=== PATIENT | male | born 1980 | race African-American/Black ===

== ENCOUNTER 2017-05-04 14:29 | Inpatient (IN) | payer MEDICARE, MEDICAID ==
[~2017-05-04] VITALS: Ht 170.2 cm; Wt 73.0 kg
[~2017-05-04 14:29] MED LIST: GABA-531 PO; HYDR-4009 PO; INSHUMSS SUBCUT; INSU300I SQ; LOPE2TAB26 MT
[2017-05-04] MEDS ORDERED: CEFEPIME 1,000 MG in DEXTROSE 5% WATER 50 ML IV SCH (20:30)
[2017-05-04 21:56] LABS: HEMOGLOBIN. 8.4 g/dL (14.0-18.0); MEAN CORPUSCULAR HEMOGLOBIN 26.8 pg (28.0-32.0); MEAN CORPUSCULAR VOLUME 85.7 fL (80.0-94.0); MEAN PLATELET VOLUME 7.4 fl (7.4-10.4); PLATELET 419 x1000/uL (130-400); RED BLOOD CELL COUNT 3.15 mill/uL (4.7-6.1); RED CELL DISTRIBUTION WIDTH 13.9 % (11.6-14.6)
[2017-05-04 22:05] LABS: INR 1.1; PROTHROMBIN TIME 11.6 sec (9.4-11.6)
[2017-05-04 22:08] LABS: CHLORIDE 100 mEq/L (98-107)
[2017-05-04 22:15] LABS: PLATELET ESTIMATE SLIGHTLY INCREASED
[2017-05-05] VITALS (29 sets, daily range): BP systolic 126–166; BP diastolic 74–90
[2017-05-05] MEDS ORDERED: DEXTROSE 50% WATER 50ML SYRINGE IV PRN ×3 (01:45→08:30)
[2017-05-05] MEDS ORDERED: INSULIN LISPRO 100 UNITS/ML SUBCUT NR (02:15)
[2017-05-05 03:14] LABS: CHLORIDE 98 mEq/L (98-107)
[2017-05-05] MEDS ORDERED: BLOOD SUGAR DIAGNOSTIC STRIP TEST SCH (07:20)
[2017-05-05] MEDS ORDERED: INSULIN LISPRO 100 UNITS/ML SUBCUT SCH (07:50)
[2017-05-05] MEDS: BLOOD SUGAR DIAGNOSTIC STRIP TEST SCH ×15 (09:00→23:00)
[2017-05-05] MEDS ORDERED: ENOXAPARIN 40MG/0.4ML SYR SUBCUT SCH (09:00)
[2017-05-05] MEDS ORDERED: SODIUM CHLORIDE 0.9% 1,000 ML IV PRN (09:00)
[2017-05-05] MEDS: INSULIN REGULAR (DRIP) 100 UNITS in SODIUM CHLORIDE 0.9% 100 ML IV SCH ×2 (09:03→20:31)
[2017-05-05] MEDS ORDERED: SODIUM CHL 0.9% + KCL 20MEQ/L 1,000 ML IV PRN (09:15)
[2017-05-05] MEDS ORDERED: DEXT 5%/0.9% NACL 1,000 ML IV PRN (09:15)
[2017-05-05] MEDS: GABAPENTIN 300MG CAPSULE PO SCH ×3 (10:14→17:55)
[2017-05-05] MEDS ORDERED: HYDRALAZINE 20MG/ML VIAL IV PRN (10:15)
[2017-05-05 10:30] LABS: HEMATOCRIT. 25.3 % (42.0-52.0); HEMOGLOBIN. 8.1 g/dL (14.0-18.0); MEAN CORPUSCULAR HEMOGLOBIN 26.7 pg (28.0-32.0); MEAN CORPUSCULAR VOLUME 83.6 fL (80.0-94.0); MEAN PLATELET VOLUME 6.8 fl (7.4-10.4); PLATELET 470 x1000/uL (130-400); RED BLOOD CELL COUNT 3.03 mill/uL (4.7-6.1); RED CELL DISTRIBUTION WIDTH 13.6 % (11.6-14.6)
[2017-05-05 10:45] LABS: PLATELET ESTIMATE INCREASED
[2017-05-05 12:48] LABS: PHOSPHORUS 4.8 mg/dL (2.5-4.9)
[2017-05-05] MEDS: DEXT 5%/0.9% NACL KCL 20MEQ/L 1,000 ML IV PRN ×2 (14:12→20:00)
[2017-05-05 15:00] LABS: HDL CHOLESTEROL 33 mg/dL (40-59); LDL CHOLESTEROL 80 mg/dL (5-100)
[2017-05-05 15:09] LABS: CLARITY URINE CLEAR (CLEAR); COLOR URINE YELLOW (YELLOW); KETONES URINE 3+ (NEGATIVE); LEUKOCYTE ESTERASE URINE NEGATIVE (NEGATIVE); NITRITE URINE NEGATIVE (NEGATIVE); OCCULT BLOOD URINE 1+ (NEGATIVE); PROTEIN URINE 3+ (NEGATIVE); SPECIFIC GRAVITY URINE 1.022 (1.005-1.030); UROBILINOGEN URINE 0.2 E.U./dL (0.2-1.0)
[2017-05-05 15:27] LABS: *AMPHETAMINES SCREEN URINE NEGATIVE (NEGATIVE); *BARBITURATES SCREEN URINE NEGATIVE (NEGATIVE); *BENZODIAZEPINES SCREEN URINE NEGATIVE (NEGATIVE); *COCAINE SCREEN URINE NEGATIVE (NEGATIVE); CANNABINOID URINE SCREEN NEGATIVE (NEGATIVE); METHADONE URINE SCREEN NEGATIVE (NEGATIVE); OPIATES URINE SCREEN NEGATIVE (NEGATIVE); PHENCYCLIDINE URINE SCREEN NEGATIVE (NEGATIVE)
[2017-05-05] MEDS ORDERED: VANCOMYCIN 1 G PREMIX 200 ML IV NR (16:30)
[2017-05-05] MEDS: AZTREONAM 2 GM in DEXT 5% WATER 100 ML IV SCH (17:55)
[2017-05-05] MEDS: METRONIDAZOLE 500 MG PREMIX 100 ML IV SCH (18:59)
[2017-05-05] MEDS ORDERED: CEFEPIME 2,000 MG in DEXT 5% WATER 100 ML IV SCH (23:00)
[2017-05-06] VITALS (39 sets, daily range): BP systolic 120–196; BP diastolic 65–108
[2017-05-06] MEDS: METRONIDAZOLE 500 MG PREMIX 100 ML IV SCH ×3 (00:34→18:26)
[2017-05-06] MEDS ORDERED: INSULIN GLARGINE UD 100 UNITS/ML SYR SUBCUT NR (01:00)
[2017-05-06] MEDS ORDERED: DEXT 5%/0.45% NACL 1000ML 1,000 ML IV SCH (01:00)
[2017-05-06] MEDS: AZTREONAM 2 GM in DEXT 5% WATER 100 ML IV SCH ×2 (04:12→17:00)
[2017-05-06] MEDS: BLOOD SUGAR DIAGNOSTIC STRIP TEST SCH ×5 (04:40→19:52)
[2017-05-06] MEDS: INSULIN LISPRO 100 UNITS/ML SUBCUT SCH ×5 (04:41→20:14)
[2017-05-06] MEDS ORDERED: BLOOD SUGAR DIAGNOSTIC STRIP TEST SCH (06:30)
[2017-05-06] MEDS ORDERED: INSULIN LISPRO 100 UNITS/ML SUBCUT SCH (07:00)
[2017-05-06] MEDS ORDERED: ENOXAPARIN 30MG/0.3ML SYR SUBCUT SCH (09:00)
[2017-05-06 09:16] LABS: HEMATOCRIT. 21.3 % (42.0-52.0); HEMOGLOBIN. 7.1 g/dL (14.0-18.0); MEAN CORPUSCULAR HEMOGLOBIN 27.8 pg (28.0-32.0); MEAN CORPUSCULAR VOLUME 83.5 fL (80.0-94.0); MEAN PLATELET VOLUME 6.6 fl (7.4-10.4); PLATELET 444 x1000/uL (130-400); RED BLOOD CELL COUNT 2.55 mill/uL (4.7-6.1); RED CELL DISTRIBUTION WIDTH 13.6 % (11.6-14.6)
[2017-05-06] MEDS: CITRIC ACID/SODIUM CITRATE SOLN 30ML UDC PO SCH ×3 (09:17→18:25)
[2017-05-06] MEDS: GABAPENTIN 300MG CAPSULE PO SCH ×3 (09:17→18:25)
[2017-05-06] MEDS: SODIUM CHLORIDE 0.9% 1,000 ML IV SCH ×3 (09:26→22:19)
[2017-05-06 09:53] LABS: PLATELET ESTIMATE INCREASED
[2017-05-06] MEDS: INSULIN GLARGINE UD 100 UNITS/ML SYR SUBCUT SCH ×2 (12:00→22:20)
[2017-05-06] MEDS ORDERED: GENTAMICIN SULF 40MG/ML 2ML VIAL ONE (14:03)
[2017-05-06] MEDS ORDERED: BUPIVACAINE HCL/PF 0.5% (5MG/ML) 10ML ONE (14:03)
[2017-05-06] MEDS ORDERED: NORMAL SALINE 0.9% 10 ML SYR ONE (14:03)
[2017-05-06] MEDS ORDERED: LIDOCAINE HCL 1% 20ML VIAL (Pyxis) INJ ONE (14:03)
[2017-05-06] MEDS ORDERED: BACITRACIN 50,000 UNITS/VIAL ONE (14:33)
[2017-05-06] MEDS ORDERED: MIDAZOLAM HCL 2 MG/2 ML VIAL ONE (16:12)
[2017-05-06] MEDS ORDERED: DIPHENHYDRAMINE 50MG/ML VIAL ONE (16:12)
[2017-05-06] MEDS ORDERED: FENTANYL CITRATE/PF 50MCG/ML 2ML VIAL ONE (16:12)
[2017-05-06] MEDS ORDERED: SODIUM CHLORIDE 0.9% 10ML VIAL ONE (18:09)
[2017-05-06] MEDS: HYDROCODONE/ACETAMINOPHEN 10/325MG TABLET PO PRN (18:39)
[2017-05-06] MEDS ORDERED: CLONIDINE 0.1MG TABLET PO PRN (19:30)
[2017-05-06] MEDS ORDERED: ACETAMINOPHEN 325MG TABLET PO PRN (20:15)
[2017-05-06] MEDS ORDERED: EPOETIN ALFA 10000UNITS/ML VIAL SUBCUT NR (21:00)
[2017-05-06] MEDS ORDERED: VANCOMYCIN 1 G PREMIX 200 ML IV NR (23:00)
[2017-05-07] VITALS: BP_SYST 107; BP_SYST 109; BP_DIAS 65; BP_DIAS 67
[2017-05-07] MEDS ORDERED: MORPHINE SULFATE 2 MG/ML CPJ (NOT FOR IM USE) IV PRN (00:45)
[2017-05-07] MEDS: METRONIDAZOLE 500 MG PREMIX 100 ML IV SCH ×3 (02:32→18:26)
[2017-05-07] MEDS: HYDROCODONE/ACETAMINOPHEN 10/325MG TABLET PO PRN (02:32)
[2017-05-07 04:00] VITALS: BP 124/79
[2017-05-07] MEDS: BLOOD SUGAR DIAGNOSTIC STRIP TEST SCH ×6 (04:00→20:00)
[2017-05-07] MEDS: AZTREONAM 2 GM in DEXT 5% WATER 100 ML IV SCH ×2 (05:50→19:38)
[2017-05-07 06:42] LABS: HEMATOCRIT. 23.5 % (42.0-52.0); HEMOGLOBIN. 7.5 g/dL (14.0-18.0); MEAN CORPUSCULAR HEMOGLOBIN 26.8 pg (28.0-32.0); MEAN CORPUSCULAR VOLUME 83.2 fL (80.0-94.0); MEAN PLATELET VOLUME 6.7 fl (7.4-10.4); PLATELET 430 x1000/uL (130-400); RED BLOOD CELL COUNT 2.82 mill/uL (4.7-6.1); RED CELL DISTRIBUTION WIDTH 14.5 % (11.6-14.6)
[2017-05-07 07:27] LABS: T4 FREE 1.45 ng/dL (0.76-1.46)
[2017-05-07 07:41] LABS: PLATELET ESTIMATE SLIGHTLY INCREASED
[2017-05-07 08:00] VITALS: BP 117/67
[2017-05-07] MEDS: CITRIC ACID/SODIUM CITRATE SOLN 30ML UDC PO SCH ×3 (09:00→18:26)
[2017-05-07] MEDS: GABAPENTIN 300MG CAPSULE PO SCH ×3 (09:04→18:26)
[2017-05-07] MEDS: ENOXAPARIN 40MG/0.4ML SYR SUBCUT SCH (09:05)
[2017-05-07] MEDS: INSULIN LISPRO 100 UNITS/ML SUBCUT SCH ×5 (09:18→21:39)
[2017-05-07 12:00] VITALS: BP 138/78
[2017-05-07] MEDS: AMLODIPINE 5MG TABLET PO SCH (12:05)
[2017-05-07] MEDS: INSULIN GLARGINE UD 100 UNITS/ML SYR SUBCUT SCH ×2 (12:16→22:00)
[2017-05-07] MEDS: SODIUM CHLORIDE 0.9% 1,000 ML IV SCH ×2 (15:44→15:45)
[2017-05-07 16:00] VITALS: BP 132/81
[2017-05-07] MEDS ORDERED: VANCOMYCIN 1 G PREMIX 200 ML IV NR (16:00)
[2017-05-07] MEDS: [UNRECOGNIZED DRUG - OTHER] IR SCH ×4 (17:00)
[2017-05-07] MEDS: POLYMYXIN B SULFATE IR SCH ×4 (17:00)
[2017-05-07] MEDS: BACITRACIN IR SCH ×4 (17:00)
[2017-05-07 20:00] VITALS: BP 143/80
[2017-05-07] MEDS: METOPROLOL TARTRATE 50MG TABLET PO SCH (21:40)
[2017-05-08] VITALS (9 sets, daily range): BP systolic 110–158; BP diastolic 58–85
[2017-05-08] MEDS: BLOOD SUGAR DIAGNOSTIC STRIP TEST SCH ×6 (00:02→21:04)
[2017-05-08] MEDS: BACITRACIN IR SCH ×12 (00:04→21:28)
[2017-05-08] MEDS: POLYMYXIN B SULFATE IR SCH ×12 (00:04→21:28)
[2017-05-08] MEDS: [UNRECOGNIZED DRUG - OTHER] IR SCH ×12 (00:04→21:28)
[2017-05-08] MEDS: METRONIDAZOLE 500 MG PREMIX 100 ML IV SCH ×3 (01:45→20:57)
[2017-05-08] MEDS: INSULIN LISPRO 100 UNITS/ML SUBCUT SCH ×6 (04:00→21:27)
[2017-05-08] MEDS: AZTREONAM 2 GM in DEXT 5% WATER 100 ML IV SCH (04:09)
[2017-05-08] MEDS: SODIUM CHLORIDE 0.9% 1,000 ML IV SCH ×2 (04:09→16:08)
[2017-05-08 06:50] LABS: MEAN CORPUSCULAR HEMOGLOBIN 27.4 pg (28.0-32.0); MEAN CORPUSCULAR VOLUME 82.9 fL (80.0-94.0); MEAN PLATELET VOLUME 6.6 fl (7.4-10.4); PLATELET 399 x1000/uL (130-400); RED BLOOD CELL COUNT 2.48 mill/uL (4.7-6.1); RED CELL DISTRIBUTION WIDTH 14.4 % (11.6-14.6)
[2017-05-08 07:18] LABS: HEMOGLOBIN. 6.8 g/dL (14.0-18.0)
[2017-05-08 07:19] LABS: HEMATOCRIT. 20.5 % (42.0-52.0)
[2017-05-08 07:51] LABS: PHOSPHORUS 2.6 mg/dL (2.5-4.9)
[2017-05-08] MEDS: METOPROLOL TARTRATE 50MG TABLET PO SCH ×3 (09:00→21:11)
[2017-05-08] MEDS: AMLODIPINE 5MG TABLET PO SCH ×2 (09:00→13:18)
[2017-05-08] MEDS: ENOXAPARIN 40MG/0.4ML SYR SUBCUT SCH (10:22)
[2017-05-08] MEDS: GABAPENTIN 300MG CAPSULE PO SCH ×3 (10:23→17:34)
[2017-05-08] MEDS: CITRIC ACID/SODIUM CITRATE SOLN 30ML UDC PO SCH ×3 (10:25→17:34)
[2017-05-08] MEDS: INSULIN GLARGINE UD 100 UNITS/ML SYR SUBCUT SCH ×2 (10:25→21:16)
[2017-05-08] MEDS ORDERED: POTASSIUM CHLORIDE 20MEQ TABLET SR PO NR (10:37)
[2017-05-08] MEDS ORDERED: MAGNESIUM 1 G PREMIX 100 ML IV NR (11:00)
[2017-05-08] MEDS ORDERED: LEVOFLOXACIN 750MG PREMIX 150 ML IV SCH (17:00)
[2017-05-08] MEDS: VANCOMYCIN 1 G PREMIX 200 ML IV SCH (17:34)
[2017-05-08 19:53] LABS: INR 1.3; PROTHROMBIN TIME 13.2 sec (9.4-11.6)
[2017-05-08] MEDS ORDERED: MEDICATION NOT ON FORMULARY EA XX SCH (21:00)
[2017-05-08 21:11] LABS: PLATELET ESTIMATE NORMAL
[2017-05-08] MEDS: LEVOFLOXACIN 750MG PREMIX 150 ML IV SCH (22:06)
[2017-05-09] VITALS (7 sets, daily range): BP systolic 118–152; BP diastolic 58–82
[2017-05-09] MEDS: METRONIDAZOLE 500 MG PREMIX 100 ML IV SCH ×3 (01:29→17:26)
[2017-05-09] MEDS: SODIUM CHLORIDE 0.9% 1,000 ML IV SCH ×3 (01:29→18:38)
[2017-05-09] MEDS: BLOOD SUGAR DIAGNOSTIC STRIP TEST SCH ×7 (04:08→23:47)
[2017-05-09] MEDS: INSULIN LISPRO 100 UNITS/ML SUBCUT SCH ×7 (04:14→23:47)
[2017-05-09 06:40] LABS: HEMATOCRIT. 23.2 % (42.0-52.0); HEMOGLOBIN. 7.5 g/dL (14.0-18.0); MEAN CORPUSCULAR HEMOGLOBIN 27.7 pg (28.0-32.0); MEAN CORPUSCULAR VOLUME 85.4 fL (80.0-94.0); MEAN PLATELET VOLUME 7.1 fl (7.4-10.4); PLATELET 372 x1000/uL (130-400); RED BLOOD CELL COUNT 2.72 mill/uL (4.7-6.1); RED CELL DISTRIBUTION WIDTH 14.4 % (11.6-14.6)
[2017-05-09] MEDS: ENOXAPARIN 40MG/0.4ML SYR SUBCUT SCH (09:48)
[2017-05-09] MEDS: CITRIC ACID/SODIUM CITRATE SOLN 30ML UDC PO SCH ×3 (09:48→17:25)
[2017-05-09] MEDS: METOPROLOL TARTRATE 50MG TABLET PO SCH ×2 (09:51→20:29)
[2017-05-09] MEDS: AMLODIPINE 5MG TABLET PO SCH (09:51)
[2017-05-09] MEDS: GABAPENTIN 300MG CAPSULE PO SCH ×3 (09:52→17:26)
[2017-05-09] MEDS: INSULIN GLARGINE UD 100 UNITS/ML SYR SUBCUT SCH ×2 (09:55→20:33)
[2017-05-09] MEDS: HYDROCODONE/ACETAMINOPHEN 10/325MG TABLET PO PRN ×2 (09:56→20:45)
[2017-05-09] MEDS: BACITRACIN IR SCH ×8 (11:04→20:28)
[2017-05-09] MEDS: [UNRECOGNIZED DRUG - OTHER] IR SCH ×8 (11:04→20:28)
[2017-05-09] MEDS: POLYMYXIN B SULFATE IR SCH ×8 (11:04→20:28)
[2017-05-09 14:30] LABS: PLATELET ESTIMATE NORMAL
[2017-05-09] MEDS ORDERED: POTASSIUM CHLORIDE 20MEQ TABLET SR PO SCH (14:30)
[2017-05-09] MEDS: VANCOMYCIN 1 G PREMIX 200 ML IV SCH (14:52)
[2017-05-09] MEDS: LACTOBACILLUS GG CAPSULE PO SCH (17:25)
[2017-05-10] VITALS: BP 130/79
[2017-05-10] MEDS: METRONIDAZOLE 500 MG PREMIX 100 ML IV SCH ×3 (01:53→19:55)
[2017-05-10] MEDS: SODIUM CHLORIDE 0.9% 1,000 ML IV SCH (03:53)
[2017-05-10] MEDS: INSULIN LISPRO 100 UNITS/ML SUBCUT SCH ×6 (03:58→23:54)
[2017-05-10] MEDS: BLOOD SUGAR DIAGNOSTIC STRIP TEST SCH ×6 (03:58→23:54)
[2017-05-10 04:00] VITALS: BP 121/73
[2017-05-10 06:25] LABS: BASOPHILS % 0.2 % (0.0-2.0); EOSINOPHILS % 1.9 % (0.0-5.0); HEMATOCRIT. 28.6 % (42.0-52.0); HEMOGLOBIN. 9.3 g/dL (14.0-18.0); LYMPHOCYTES % 10.7 % (20.0-50.0); MEAN CORPUSCULAR HEMOGLOBIN 27.8 pg (28.0-32.0); MEAN CORPUSCULAR VOLUME 85.8 fL (80.0-94.0); MEAN PLATELET VOLUME 6.9 fl (7.4-10.4); MONOCYTES % 5.8 % (2.0-8.0); NEUTROPHILS % 81.4 % (40.0-76.0); PLATELET 556 x1000/uL (130-400); RED BLOOD CELL COUNT 3.34 mill/uL (4.7-6.1); RED CELL DISTRIBUTION WIDTH 14.8 % (11.6-14.6)
[2017-05-10] MEDS: LACTOBACILLUS GG CAPSULE PO SCH ×3 (06:31→17:37)
[2017-05-10 06:40] LABS: PHOSPHORUS 2.4 mg/dL (2.5-4.9)
[2017-05-10 08:00] VITALS: BP 140/83
[2017-05-10] MEDS: CITRIC ACID/SODIUM CITRATE SOLN 30ML UDC PO SCH ×2 (09:03→17:37)
[2017-05-10] MEDS: ENOXAPARIN 40MG/0.4ML SYR SUBCUT SCH (09:03)
[2017-05-10] MEDS: METOPROLOL TARTRATE 50MG TABLET PO SCH ×2 (09:03→21:13)
[2017-05-10] MEDS: AMLODIPINE 5MG TABLET PO SCH (09:04)
[2017-05-10] MEDS: GABAPENTIN 300MG CAPSULE PO SCH ×3 (09:04→17:37)
[2017-05-10] MEDS: INSULIN GLARGINE UD 100 UNITS/ML SYR SUBCUT SCH ×2 (11:34→21:19)
[2017-05-10 12:00] VITALS: BP 136/80
[2017-05-10] MEDS: MAGNESIUM OXIDE 400MG TABLET PO SCH ×2 (13:34→21:12)
[2017-05-10] MEDS: POTASSIUM-SODIUM PHOSPHATE POWDER PACKET PO SCH ×2 (13:35→17:37)
[2017-05-10] MEDS ORDERED: POTASSIUM PHOS,M-BASIC-D-BASIC 15 MMOL in DEXT 5% WATER 245 ML IV SCH (14:30)
[2017-05-10] MEDS: BACITRACIN IR SCH ×8 (14:45→20:33)
[2017-05-10] MEDS: [UNRECOGNIZED DRUG - OTHER] IR SCH ×8 (14:45→20:33)
[2017-05-10] MEDS: POLYMYXIN B SULFATE IR SCH ×8 (14:45→20:33)
[2017-05-10 16:00] VITALS: BP 127/78
[2017-05-10] MEDS: VANCOMYCIN 1 G PREMIX 200 ML IV SCH (18:11)
[2017-05-10] MEDS ORDERED: HEPARIN 100 UNITS/1 ML VIAL IVF PRN (18:45)
[2017-05-10 20:00] VITALS: BP 142/85
[2017-05-10] MEDS: LEVOFLOXACIN 750MG PREMIX 150 ML IV SCH (21:18)
[2017-05-11] VITALS: BP 134/78
[2017-05-11] MEDS: METRONIDAZOLE 500 MG PREMIX 100 ML IV SCH ×3 (01:09→17:28)
[2017-05-11 04:00] VITALS: BP 119/75
[2017-05-11] MEDS: INSULIN LISPRO 100 UNITS/ML SUBCUT SCH ×5 (04:00→20:35)
[2017-05-11] MEDS: BLOOD SUGAR DIAGNOSTIC STRIP TEST SCH ×5 (04:04→20:02)
[2017-05-11] MEDS: LACTOBACILLUS GG CAPSULE PO SCH ×3 (05:58→17:28)
[2017-05-11 07:12] LABS: BASOPHILS % 0.3 % (0.0-2.0); EOSINOPHILS % 1.3 % (0.0-5.0); HEMOGLOBIN. 9.1 g/dL (14.0-18.0); LYMPHOCYTES % 9.3 % (20.0-50.0); MEAN CORPUSCULAR HEMOGLOBIN 27.4 pg (28.0-32.0); MEAN CORPUSCULAR VOLUME 84.5 fL (80.0-94.0); MEAN PLATELET VOLUME 6.5 fl (7.4-10.4); MONOCYTES % 5.9 % (2.0-8.0); NEUTROPHILS % 83.2 % (40.0-76.0); PLATELET 592 x1000/uL (130-400); RED BLOOD CELL COUNT 3.31 mill/uL (4.7-6.1); RED CELL DISTRIBUTION WIDTH 14.7 % (11.6-14.6)
[2017-05-11 08:00] VITALS: BP_SYST 105; BP_SYST 130; BP_DIAS 69; BP_DIAS 81
[2017-05-11] MEDS: ENOXAPARIN 40MG/0.4ML SYR SUBCUT SCH (10:23)
[2017-05-11] MEDS: POTASSIUM-SODIUM PHOSPHATE POWDER PACKET PO SCH ×2 (10:24→17:28)
[2017-05-11] MEDS: MAGNESIUM OXIDE 400MG TABLET PO SCH ×2 (10:24→20:40)
[2017-05-11] MEDS: METOPROLOL TARTRATE 50MG TABLET PO SCH ×2 (10:24→20:41)
[2017-05-11] MEDS: AMLODIPINE 5MG TABLET PO SCH (10:24)
[2017-05-11] MEDS: GABAPENTIN 300MG CAPSULE PO SCH ×3 (10:24→17:28)
[2017-05-11] MEDS: CITRIC ACID/SODIUM CITRATE SOLN 30ML UDC PO SCH ×2 (10:24→17:28)
[2017-05-11] MEDS: INSULIN GLARGINE UD 100 UNITS/ML SYR SUBCUT SCH ×2 (10:49→21:04)
[2017-05-11] MEDS: POLYMYXIN B SULFATE IR SCH ×8 (11:05→20:43)
[2017-05-11] MEDS: BACITRACIN IR SCH ×8 (11:05→20:43)
[2017-05-11] MEDS: [UNRECOGNIZED DRUG - OTHER] IR SCH ×8 (11:05→20:43)
[2017-05-11] MEDS ORDERED: MORPHINE SULFATE 2 MG/ML CPJ (NOT FOR IM USE) IV PRN (11:15)
[2017-05-11] MEDS ORDERED: HYDROCODONE/ACETAMINOPHEN 5/325MG TABLET PO PRN (11:15)
[2017-05-11] MEDS: VANCOMYCIN 1 G PREMIX 200 ML IV SCH (14:37)
[2017-05-11 16:00] VITALS: BP 127/73
[2017-05-11 20:00] VITALS: BP 133/78
[2017-05-12] VITALS: BP 127/76
[2017-05-12] MEDS: INSULIN LISPRO 100 UNITS/ML SUBCUT SCH ×6 (00:08→20:47)
[2017-05-12] MEDS: METRONIDAZOLE 500 MG PREMIX 100 ML IV SCH ×3 (02:17→16:53)
[2017-05-12 04:00] VITALS: BP 115/70
[2017-05-12] MEDS: BLOOD SUGAR DIAGNOSTIC STRIP TEST SCH ×6 (04:10→20:36)
[2017-05-12] MEDS: LACTOBACILLUS GG CAPSULE PO SCH ×3 (06:11→16:53)
[2017-05-12 06:51] LABS: BASOPHILS % 0.3 % (0.0-2.0); HEMATOCRIT. 27.2 % (42.0-52.0); HEMOGLOBIN. 9.1 g/dL (14.0-18.0); LYMPHOCYTES % 12.7 % (20.0-50.0); MEAN CORPUSCULAR HEMOGLOBIN 28.5 pg (28.0-32.0); MEAN CORPUSCULAR VOLUME 85.1 fL (80.0-94.0); MEAN PLATELET VOLUME 6.3 fl (7.4-10.4); MONOCYTES % 7.1 % (2.0-8.0); NEUTROPHILS % 77.9 % (40.0-76.0); PLATELET 607 x1000/uL (130-400); RED BLOOD CELL COUNT 3.19 mill/uL (4.7-6.1); RED CELL DISTRIBUTION WIDTH 14.5 % (11.6-14.6)
[2017-05-12 08:00] VITALS: BP 128/78
[2017-05-12] MEDS: CITRIC ACID/SODIUM CITRATE SOLN 30ML UDC PO SCH (08:20)
[2017-05-12] MEDS: ENOXAPARIN 40MG/0.4ML SYR SUBCUT SCH (08:20)
[2017-05-12] MEDS: GABAPENTIN 300MG CAPSULE PO SCH ×3 (08:20→16:53)
[2017-05-12] MEDS: AMLODIPINE 5MG TABLET PO SCH (08:21)
[2017-05-12] MEDS: METOPROLOL TARTRATE 50MG TABLET PO SCH ×2 (08:21→20:48)
[2017-05-12] MEDS: POTASSIUM-SODIUM PHOSPHATE POWDER PACKET PO SCH ×2 (08:21→16:53)
[2017-05-12] MEDS: MAGNESIUM OXIDE 400MG TABLET PO SCH ×2 (08:21→20:55)
[2017-05-12] MEDS: INSULIN GLARGINE UD 100 UNITS/ML SYR SUBCUT SCH ×2 (10:52→21:13)
[2017-05-12 12:00] VITALS: BP 137/85
[2017-05-12] MEDS: ZINC SULFATE 220 MG ( 50 ) CAPSULE PO SCH (15:20)
[2017-05-12] MEDS: VANCOMYCIN 1 G PREMIX 200 ML IV SCH (15:21)
[2017-05-12] MEDS: FOLIC ACID/VITAMIN B COMP W-C TABLET PO SCH (15:21)
[2017-05-12] MEDS: PANTOPRAZOLE 40MG DR TABLET PO SCH (15:21)
[2017-05-12 16:00] VITALS: BP 132/82
[2017-05-12] MEDS: ASCORBIC ACID 250 MG TABLET PO SCH (16:53)
[2017-05-12] MEDS ORDERED: NON FORMULARY PATIENT HOME MED EA XX SCH (18:30)
[2017-05-12 20:00] VITALS: BP 145/85
[2017-05-12] MEDS ORDERED: LEVOFLOXACIN 750MG PREMIX 150 ML IV SCH (21:00)
[2017-05-12] MEDS: [UNRECOGNIZED DRUG - OTHER] IR SCH ×4 (21:04)
[2017-05-12] MEDS: BACITRACIN IR SCH ×4 (21:04)
[2017-05-12] MEDS: POLYMYXIN B SULFATE IR SCH ×4 (21:04)
[2017-05-13] VITALS: BP 118/72
[2017-05-13] MEDS: BLOOD SUGAR DIAGNOSTIC STRIP TEST SCH ×6 (00:08→20:45)
[2017-05-13 04:00] VITALS: BP 126/76
[2017-05-13] MEDS: INSULIN LISPRO 100 UNITS/ML SUBCUT SCH ×6 (04:00→20:00)
[2017-05-13] MEDS: LACTOBACILLUS GG CAPSULE PO SCH ×3 (06:31→17:18)
[2017-05-13] MEDS: PANTOPRAZOLE 40MG DR TABLET PO SCH (06:32)
[2017-05-13 08:00] VITALS: BP 138/81
[2017-05-13 08:19] LABS: BASOPHILS % 0.2 % (0.0-2.0); EOSINOPHILS % 1.6 % (0.0-5.0); HEMATOCRIT. 26.1 % (42.0-52.0); HEMOGLOBIN. 8.7 g/dL (14.0-18.0); LYMPHOCYTES % 9.5 % (20.0-50.0); MEAN CORPUSCULAR HEMOGLOBIN 28.5 pg (28.0-32.0); MEAN PLATELET VOLUME 6.6 fl (7.4-10.4); MONOCYTES % 5.3 % (2.0-8.0); NEUTROPHILS % 83.4 % (40.0-76.0); PLATELET 574 x1000/uL (130-400); RED BLOOD CELL COUNT 3.07 mill/uL (4.7-6.1); RED CELL DISTRIBUTION WIDTH 14.5 % (11.6-14.6)
[2017-05-13 08:56] LABS: PHOSPHORUS 2.6 mg/dL (2.5-4.9)
[2017-05-13] MEDS: METOPROLOL TARTRATE 50MG TABLET PO SCH (09:15)
[2017-05-13] MEDS: GABAPENTIN 300MG CAPSULE PO SCH ×3 (09:15→17:18)
[2017-05-13] MEDS: AMLODIPINE 5MG TABLET PO SCH (09:15)
[2017-05-13] MEDS: MAGNESIUM OXIDE 400MG TABLET PO SCH (09:16)
[2017-05-13] MEDS: FOLIC ACID/VITAMIN B COMP W-C TABLET PO SCH (09:17)
[2017-05-13] MEDS: ZINC SULFATE 220 MG ( 50 ) CAPSULE PO SCH (09:17)
[2017-05-13] MEDS: ASCORBIC ACID 250 MG TABLET PO SCH ×2 (09:17→17:18)
[2017-05-13] MEDS: ENOXAPARIN 40MG/0.4ML SYR SUBCUT SCH (09:18)
[2017-05-13] MEDS: POTASSIUM-SODIUM PHOSPHATE POWDER PACKET PO SCH (09:22)
[2017-05-13] MEDS: INSULIN GLARGINE UD 100 UNITS/ML SYR SUBCUT SCH (10:27)
[2017-05-13 12:00] VITALS: BP 151/85
[2017-05-13] MEDS: POLYMYXIN B SULFATE IR SCH ×4 (13:34)
[2017-05-13] MEDS: BACITRACIN IR SCH ×4 (13:34)
[2017-05-13] MEDS: [UNRECOGNIZED DRUG - OTHER] IR SCH ×4 (13:34)
[2017-05-13 16:00] VITALS: BP 156/91
[2017-05-13] MEDS: VANCOMYCIN 1 G PREMIX 200 ML IV SCH (16:31)
[2017-05-13 19:45] VITALS: BP 138/77
== END 2017-05-13 21:05 | disposition home health service (06) | DRG 853 ==
LOC: ER 14:29 → 6EST 20:38 → ENRESERV 21:29 → ER 05-05 00:08 → MICUSO 05-05 08:28 → 5WST 05-06 23:47
PROVIDERS: ADMIT Internal Medicine; ATTEND Internal Medicine
PROC: 30233N1 Transfusion of Nonautologous Red Blood Cells into Peripheral Vein, Percutaneous Approach (ICD-10-PCS; 2017-05-06)
PROC: 0QDM0ZZ Extraction of Left Tarsal, Open Approach (ICD-10-PCS; 2017-05-06)
PROC: 0Q9M0ZZ Drainage of Left Tarsal, Open Approach (ICD-10-PCS; principal; 2017-05-06 15:30)
DX: A41.9 Sepsis, unspecified organism (principal); E43 Unspecified severe protein-calorie malnutrition; E11.10 Type 2 diabetes mellitus with ketoacidosis without coma; N17.9 Acute kidney failure, unspecified; K31.84 Gastroparesis; E83.42 Hypomagnesemia; N18.4 Chronic kidney disease, stage 4 (severe); E11.40 Type 2 diabetes mellitus with diabetic neuropathy, unspecified; E11.319 Type 2 diabetes mellitus with unspecified diabetic retinopathy without macular edema; E11.22 Type 2 diabetes mellitus with diabetic chronic kidney disease; L03.116 Cellulitis of left lower limb; E87.1 Hypo-osmolality and hyponatremia; M86.8X7 Other osteomyelitis, ankle and foot; L02.612 Cutaneous abscess of left foot; E11.39 Type 2 diabetes mellitus with other diabetic ophthalmic complication; E11.621 Type 2 diabetes mellitus with foot ulcer; E87.6 Hypokalemia; D64.9 Anemia, unspecified; E78.5 Hyperlipidemia, unspecified; H54.7 Unspecified visual loss; I12.9 Hypertensive chronic kidney disease with stage 1 through stage 4 chronic kidney disease, or unspecified chronic kidney disease; L97.529 Non-pressure chronic ulcer of other part of left foot with unspecified severity; E11.43 Type 2 diabetes mellitus with diabetic autonomic (poly)neuropathy; E11.69 Type 2 diabetes mellitus with other specified complication; Z79.4 Long term (current) use of insulin; Z79.899 Other long term (current) drug therapy; Z82.49 Family history of ischemic heart disease and other diseases of the circulatory system; Z88.0 Allergy status to penicillin; Z83.3 Family history of diabetes mellitus; Z68.25 Body mass index [BMI] 25.0-25.9, adult
CPT/HCPCS: 36415; 71045; 73630; 73721; 76770; 80048; 80053; 80061; 80202; 80305; 81003; 82010; 82270; 82728; 82962; 83036; 83540; 83550; 83605; 83735; 84100; 84439; 84443; 84481; 85014; 85018; 85025; 85049; 85384; 85610; 86850; 86900; 86920; 87040; 87070; 87075; 87077; 87086; 87186; 87205; 93005; 93306; 93923; 93970; 96365; 97116; 97162; 99285; A4216; C1893; J0360; J0692; J0885; J1200; J1580; J1642; J1650; J1815; J1956; J2250; J3010; J3370; J3475; J3480; J3490; J7030; J7050; J7060; P9016

== ENCOUNTER 2017-05-18 14:03 | Inpatient (IN) | payer MEDICARE, MEDICAID ==
[~2017-05-18] VITALS: Ht 170.2 cm; Wt 54.4 kg
[2017-05-18] MEDS ORDERED: ACETAMINOPHEN WITH CODEINE 300/30MG TABLET PO ONE (17:45)
[2017-05-18 18:13] LABS: BASOPHILS % 0.5 % (0.0-2.0); EOSINOPHILS % 1.9 % (0.0-5.0); HEMATOCRIT. 25.6 % (42.0-52.0); HEMOGLOBIN. 8.5 g/dL (14.0-18.0); LYMPHOCYTES % 12.2 % (20.0-50.0); MEAN CORPUSCULAR HEMOGLOBIN 28.7 pg (28.0-32.0); MEAN CORPUSCULAR VOLUME 86.6 fL (80.0-94.0); MEAN PLATELET VOLUME 6.3 fl (7.4-10.4); MONOCYTES % 4.7 % (2.0-8.0); NEUTROPHILS % 80.7 % (40.0-76.0); PLATELET 374 x1000/uL (130-400); RED BLOOD CELL COUNT 2.96 mill/uL (4.7-6.1); RED CELL DISTRIBUTION WIDTH 16.3 % (11.6-14.6)
[2017-05-18 18:27] LABS: CLARITY URINE CLEAR (CLEAR); COLOR URINE YELLOW (YELLOW); KETONES URINE NEGATIVE (NEGATIVE); LEUKOCYTE ESTERASE URINE NEGATIVE (NEGATIVE); NITRITE URINE NEGATIVE (NEGATIVE); OCCULT BLOOD URINE 2+ (NEGATIVE); PH URINE 6.5 (4.5-8.0); PROTEIN URINE 3+ (NEGATIVE); SPECIFIC GRAVITY URINE 1.014 (1.005-1.030); UROBILINOGEN URINE 0.2 E.U./dL (0.2-1.0)
[2017-05-18 21:27] LABS: BASOPHILS % 0.7 % (0.0-2.0); CHLORIDE 111 mEq/L (98-107); EOSINOPHILS % 2.1 % (0.0-5.0); HEMATOCRIT. 27.9 % (42.0-52.0); HEMOGLOBIN. 9.1 g/dL (14.0-18.0); LYMPHOCYTES % 14.4 % (20.0-50.0); MEAN CORPUSCULAR VOLUME 86.2 fL (80.0-94.0); MEAN PLATELET VOLUME 6.2 fl (7.4-10.4); MONOCYTES % 4.5 % (2.0-8.0); NEUTROPHILS % 78.3 % (40.0-76.0); PLATELET 398 x1000/uL (130-400); RED BLOOD CELL COUNT 3.24 mill/uL (4.7-6.1); RED CELL DISTRIBUTION WIDTH 16.6 % (11.6-14.6)
[2017-05-18] MEDS ORDERED: ACETAMINOPHEN 325MG TABLET PO PRN (22:45)
[2017-05-18] MEDS ORDERED: ONDANSETRON HCL 4MG/2ML VIAL IV PRN (23:30)
[2017-05-18] MEDS ORDERED: IPRATROPIUM/ALBUTEROL 0.5-3(2.5)MG/3ML NEB INH PRN (23:30)
[2017-05-18] MEDS ORDERED: HYDROCODONE/ACETAMINOPHEN 5/325MG TABLET PO PRN (23:30)
[2017-05-18] MEDS ORDERED: MAGNESIUM/ALUMINUM HYDROXIDE/SIMETHICONE 30ML UDC PO PRN (23:30)
[2017-05-18] MEDS ORDERED: CLONIDINE 0.1MG TABLET PO PRN (23:30)
[2017-05-18] MEDS ORDERED: DOCUSATE SODIUM 100MG CAPSULE PO PRN (23:30)
[2017-05-18 23:50] VITALS: BP 163/96
[2017-05-19 00:38] LABS: HEPATITIS B CORE AB IGM NEGATIVE
[2017-05-19 00:40] LABS: HEPATITIS A AB IGM NEGATIVE (NEGATIVE)
[2017-05-19 01:00] VITALS: BP 150/79
[2017-05-19 01:33] VITALS: BP 163/96
[2017-05-19 01:39] LABS: HEPATITIS B SURFACE ANTIGEN NEGATIVE
[2017-05-19] MEDS ORDERED: LEVO750T46 PO (02:05)
[2017-05-19 06:13] LABS: BASOPHILS % 0.8 % (0.0-2.0); EOSINOPHILS % 2.2 % (0.0-5.0); HEMATOCRIT. 26.4 % (42.0-52.0); HEMOGLOBIN. 8.7 g/dL (14.0-18.0); MEAN CORPUSCULAR HEMOGLOBIN 28.9 pg (28.0-32.0); MEAN CORPUSCULAR VOLUME 87.4 fL (80.0-94.0); MEAN PLATELET VOLUME 6.7 fl (7.4-10.4); PLATELET 363 x1000/uL (130-400); RED BLOOD CELL COUNT 3.02 mill/uL (4.7-6.1); RED CELL DISTRIBUTION WIDTH 16.4 % (11.6-14.6)
[2017-05-19 06:49] LABS: CHLORIDE 110 mEq/L (98-107)
[2017-05-19 07:04] LABS: CREATINE KINASE 382 IU/L (39-308); CREATINE KINASE MB FRACTION 1.3 ng/mL (0.5-3.6); HDL CHOLESTEROL 64 mg/dL (40-59); LDL CHOLESTEROL 105 mg/dL (5-100)
[2017-05-19 07:24] VITALS: BP 169/95
[2017-05-19] MEDS ORDERED: LOPERAMIDE HCL MT SCH (10:45)
[2017-05-19] MEDS ORDERED: LEVOFLOXACIN 750 MG PO SCH (10:45)
[2017-05-19] MEDS ORDERED: HYDROCODONE/ACETAMINOPHEN 10/325MG TABLET PO PRN (10:45)
[2017-05-19] MEDS ORDERED: DEXTROSE 50% WATER 50ML SYRINGE IV PRN (11:00)
[2017-05-19] MEDS: MULTIVITAMINS,THER W-MINERALS TABLET PO SCH (11:32)
[2017-05-19] MEDS: THIAMINE HCL 100MG TABLET PO SCH (11:32)
[2017-05-19] MEDS: FOLIC ACID 1MG TABLET PO SCH (11:32)
[2017-05-19] MEDS: GABAPENTIN 300MG CAPSULE PO SCH ×2 (11:32→18:34)
[2017-05-19] MEDS: FUROSEMIDE 40MG/4ML VIAL IV SCH (11:33)
[2017-05-19] MEDS: ENOXAPARIN 40MG/0.4ML SYR SUBCUT SCH (11:44)
[2017-05-19] MEDS ORDERED: LOPERAMIDE HCL 2MG CAPSULE PO PRN (11:45)
[2017-05-19] MEDS: BLOOD SUGAR DIAGNOSTIC STRIP TEST SCH ×3 (11:45→21:00)
[2017-05-19] MEDS ORDERED: LEVOFLOXACIN 250MG TABLET PO SCH (12:00)
[2017-05-19 12:07] LABS: *AMPHETAMINES SCREEN URINE NEGATIVE (NEGATIVE); *BARBITURATES SCREEN URINE NEGATIVE (NEGATIVE); *BENZODIAZEPINES SCREEN URINE NEGATIVE (NEGATIVE); *COCAINE SCREEN URINE NEGATIVE (NEGATIVE); METHADONE URINE SCREEN NEGATIVE (NEGATIVE); OPIATES URINE SCREEN NEGATIVE (NEGATIVE)
[2017-05-19 12:08] LABS: CANNABINOID URINE SCREEN NEGATIVE (NEGATIVE); PHENCYCLIDINE URINE SCREEN NEGATIVE (NEGATIVE)
[2017-05-19] MEDS ORDERED: INSU300I SQ (13:04)
[2017-05-19] MEDS: INSULIN LISPRO 100 UNITS/ML SUBCUT SCH ×3 (13:17→22:33)
[2017-05-19] MEDS ORDERED: VANCOMYCIN 1 G PREMIX 200 ML IV SCH ×2 (14:00→16:00)
[2017-05-19 18:06] LABS: CREATINE KINASE 306 IU/L (39-308); CREATINE KINASE MB FRACTION 1.4 ng/mL (0.5-3.6)
[2017-05-19 20:00] VITALS: BP 168/100
[2017-05-19] MEDS: INSULIN GLARGINE UD 100 UNITS/ML SYR SUBCUT SCH (22:00)
[2017-05-20] VITALS: BP 160/86
[2017-05-20 04:00] VITALS: BP 146/87
[2017-05-20] MEDS: BLOOD SUGAR DIAGNOSTIC STRIP TEST SCH ×3 (06:50→17:35)
[2017-05-20] MEDS: INSULIN LISPRO 100 UNITS/ML SUBCUT SCH ×3 (06:54→17:42)
[2017-05-20 08:00] VITALS: BP 126/78
[2017-05-20] MEDS: THIAMINE HCL 100MG TABLET PO SCH (09:38)
[2017-05-20] MEDS: MULTIVITAMINS,THER W-MINERALS TABLET PO SCH (09:38)
[2017-05-20] MEDS: GABAPENTIN 300MG CAPSULE PO SCH ×3 (09:38→17:40)
[2017-05-20] MEDS: FOLIC ACID 1MG TABLET PO SCH (09:38)
[2017-05-20] MEDS: FUROSEMIDE 40MG/4ML VIAL IV SCH (09:38)
[2017-05-20] MEDS: ENOXAPARIN 40MG/0.4ML SYR SUBCUT SCH (09:39)
[2017-05-20] MEDS: INSULIN GLARGINE UD 100 UNITS/ML SYR SUBCUT SCH (09:54)
[2017-05-20] MEDS ORDERED: GUAIFENESIN-DM 200MG-20MG/10ML UDC PO PRN (10:30)
[2017-05-20 12:00] VITALS: BP 151/84
[2017-05-20 16:00] VITALS: BP 159/91
[2017-05-20 19:00] VITALS: BP 151/84
== END 2017-05-20 19:20 | disposition home or self-care (01) | DRG 872 ==
LOC: ER 15:12 → 5WST 22:32 → EDBEDREQ 22:34 → ENRESERV 22:56 → 5WST 05-19 00:13
PROVIDERS: ADMIT Internal Medicine; ATTEND Internal Medicine
DX: A41.9 Sepsis, unspecified organism (principal); N17.9 Acute kidney failure, unspecified; E10.22 Type 1 diabetes mellitus with diabetic chronic kidney disease; E10.319 Type 1 diabetes mellitus with unspecified diabetic retinopathy without macular edema; M86.8X7 Other osteomyelitis, ankle and foot; L03.116 Cellulitis of left lower limb; E10.69 Type 1 diabetes mellitus with other specified complication; E10.621 Type 1 diabetes mellitus with foot ulcer; E10.65 Type 1 diabetes mellitus with hyperglycemia; E10.40 Type 1 diabetes mellitus with diabetic neuropathy, unspecified; E10.51 Type 1 diabetes mellitus with diabetic peripheral angiopathy without gangrene; N49.2 Inflammatory disorders of scrotum; L97.529 Non-pressure chronic ulcer of other part of left foot with unspecified severity; N18.9 Chronic kidney disease, unspecified; I12.9 Hypertensive chronic kidney disease with stage 1 through stage 4 chronic kidney disease, or unspecified chronic kidney disease; D64.9 Anemia, unspecified; M19.90 Unspecified osteoarthritis, unspecified site; Z88.0 Allergy status to penicillin; Z91.018 Allergy to other foods
CPT/HCPCS: 36415; 71045; 76705; 76870; 80053; 80061; 80202; 80305; 81003; 82550; 82553; 82962; 83735; 83880; 84443; 84484; 85025; 86705; 86709; 86803; 87040; 87086; 87340; 93005; 93970; 93976; 99285; J1650; J1815; J1940; J3370; J7050

== ENCOUNTER 2017-06-26 06:35 | Inpatient (IN) | payer MEDICARE, MEDICAID ==
[2017-06-26] VITALS (7 sets, daily range): BP systolic 130–180; BP diastolic 78–108
[~2017-06-26] VITALS: Ht 170.2 cm; Wt 64.4 kg
[~2017-06-26 06:35] MED LIST changes: +LEVO750T46 PO
[2017-06-26] MEDS ORDERED: SODIUM CHLORIDE 0.9% 1,000 ML IV ONE ×2 (07:05→08:01)
[2017-06-26 07:40] LABS: BASOPHILS % 0.4 % (0.0-2.0); HEMATOCRIT. 26.6 % (42.0-52.0); HEMOGLOBIN. 8.8 g/dL (14.0-18.0); LYMPHOCYTES % 11.6 % (20.0-50.0); MEAN CORPUSCULAR HEMOGLOBIN 29.5 pg (28.0-32.0); MEAN CORPUSCULAR VOLUME 89.6 fL (80.0-94.0); MEAN PLATELET VOLUME 7.4 fl (7.4-10.4); MONOCYTES % 2.5 % (2.0-8.0); NEUTROPHILS % 83.5 % (40.0-76.0); PLATELET 240 x1000/uL (130-400); RED BLOOD CELL COUNT 2.97 mill/uL (4.7-6.1); RED CELL DISTRIBUTION WIDTH 14.6 % (11.6-14.6)
[2017-06-26 07:42] LABS: CHLORIDE 104 mEq/L (98-107)
[2017-06-26 07:59] LABS: BETA HYDROXYBUTYRATE 0.2 mMol/L (0.0-0.3)
[2017-06-26 08:17] LABS: BG BASE EXCESS -7.4 mmol/L (-2.0-2.0); BG CARBOXYHEMOGLOBIN 0.8 % (0.5-1.5); BG DEOXYHEMOGLOBIN 4.2 % (0.0-5.0); BG FRACTION INSPIRED OXYGEN 21; BG HCO3 ACT 18.6 mmol/L (22.0-26.0); BG METHEMOGLOBIN 0.3 % (0.0-1.5); BG OXYGEN SATURATION 95.8 % (92.0-98.5); BG OXYHEMOGLOBIN 94.7 % (94.0-97.0); BG PCO2 39.5 mmHg (35.0-45.0); BG PH 7.291 (7.350-7.450); BG PO2 84.8 mmHg (75.0-100.0); BG SAMPLE SITE RIGHT BRACHIAL; BG VENT MODE ROOM AIR
[2017-06-26] MEDS ORDERED: INSULIN REGULAR (DRIP) 100 UNITS in SODIUM CHLORIDE 0.9% 99 ML IV SCH (08:45)
[2017-06-26] MEDS ORDERED: HYDRALAZINE HCL 50MG TABLET PO ONE (13:15)
[2017-06-26] MEDS ORDERED: SODIUM CHLORIDE 0.45% 1,000 ML IV SCH (14:17)
[2017-06-26] MEDS ORDERED: ONDANSETRON HCL 4MG/2ML VIAL IV PRN (14:30)
[2017-06-26] MEDS ORDERED: ACETAMINOPHEN 325MG TABLET PO PRN (14:30)
[2017-06-26] MEDS ORDERED: CLONIDINE 0.1MG TABLET PO PRN (14:30)
[2017-06-26] MEDS ORDERED: HYDROCODONE/ACETAMINOPHEN 10/325MG TABLET PO PRN (14:30)
[2017-06-26] MEDS ORDERED: ACETAMINOPHEN 650MG SUPP PR PRN (14:30)
[2017-06-26] MEDS: BLOOD SUGAR DIAGNOSTIC STRIP TEST SCH ×9 (14:30→23:30)
[2017-06-26] MEDS ORDERED: ACETAMINOPHEN 650MG/20.3ML UDC GT PRN (14:30)
[2017-06-26] MEDS ORDERED: DOCUSATE SODIUM 100MG CAPSULE PO PRN (14:30)
[2017-06-26] MEDS ORDERED: HYDROCODONE/ACETAMINOPHEN 5/325MG TABLET PO PRN (14:30)
[2017-06-26] MEDS ORDERED: MAGNESIUM/ALUMINUM HYDROXIDE/SIMETHICONE 30ML UDC PO PRN (14:30)
[2017-06-26] MEDS ORDERED: GUAIFENESIN 200MG/10ML SUGAR FREE UDC PO PRN (14:30)
[2017-06-26] MEDS ORDERED: MORPHINE SULFATE 2 MG/ML CPJ (NOT FOR IM USE) IV PRN (14:30)
[2017-06-26] MEDS ORDERED: IPRATROPIUM/ALBUTEROL 0.5-3(2.5)MG/3ML NEB INH PRN (14:30)
[2017-06-26] MEDS ORDERED: DEXTROSE 50% WATER 50ML SYRINGE IV PRN ×2 (14:30)
[2017-06-26] MEDS ORDERED: NA PHOS,M-B/NA PHOS,DI-BA ENEMA 118ML PR PRN (14:30)
[2017-06-26] MEDS ORDERED: DIPHENHYDRAMINE 50MG/ML VIAL IV PRN (14:30)
[2017-06-26] MEDS ORDERED: INSULIN REGULAR (DRIP) 100 UNITS in SODIUM CHLORIDE 0.9% 100 ML IV SCH (16:43)
[2017-06-26 16:55] LABS: CHLORIDE 111 mEq/L (98-107)
[2017-06-26] MEDS: AMLODIPINE 10MG TABLET PO SCH (17:15)
[2017-06-26 17:34] LABS: BG BASE EXCESS -8.6 mmol/L (-2.0-2.0); BG CARBOXYHEMOGLOBIN 0.4 % (0.5-1.5); BG DEOXYHEMOGLOBIN 3.2 % (0.0-5.0); BG HCO3 ACT 16.5 mmol/L (22.0-26.0); BG METHEMOGLOBIN 0.2 % (0.0-1.5); BG OXYGEN SATURATION 96.8 % (92.0-98.5); BG OXYHEMOGLOBIN 96.2 % (94.0-97.0); BG PCO2 32.7 mmHg (35.0-45.0); BG PH 7.322 (7.350-7.450); BG PO2 89.5 mmHg (75.0-100.0); BG SAMPLE SITE RIGHT RADIAL; BG TOTAL HEMOGLOBIN 9.6 g/dL (12.0-18.0); BG VENT MODE ROOM AIR
[2017-06-26] MEDS ORDERED: PANTOPRAZOLE SODIUM 40 MG/VIAL IV SCH (18:15)
[2017-06-26 18:26] LABS: HEPATITIS B SURFACE ANTIGEN NEGATIVE
[2017-06-26] MEDS: PANTOPRAZOLE SODIUM 40 MG/VIAL IV SCH (18:26)
[2017-06-26] MEDS ORDERED: VANCOMYCIN 1 G PREMIX 200 ML IV SCH ×2 (18:30)
[2017-06-26 18:55] LABS: HEPATITIS B CORE AB IGM NEGATIVE
[2017-06-26 18:56] LABS: HEPATITIS A AB IGM NEGATIVE (NEGATIVE)
[2017-06-26] MEDS: MORPHINE SULFATE 4 MG/ML CPJ (NOT FOR IM USE) IV PRN (19:13)
[2017-06-26 20:14] LABS: CLARITY URINE CLEAR (CLEAR); COLOR URINE YELLOW (YELLOW); KETONES URINE NEGATIVE (NEGATIVE); LEUKOCYTE ESTERASE URINE NEGATIVE (NEGATIVE); NITRITE URINE NEGATIVE (NEGATIVE); OCCULT BLOOD URINE 2+ (NEGATIVE); PH URINE 5.5 (4.5-8.0); PROTEIN URINE 3+ (NEGATIVE); SPECIFIC GRAVITY URINE 1.019 (1.005-1.030); UROBILINOGEN URINE 0.2 E.U./dL (0.2-1.0)
[2017-06-26] MEDS: SODIUM CHLORIDE 0.9% INJ 3ML FLUSH IVF SCH (22:00)
[2017-06-26 22:28] LABS: CANNABINOID URINE SCREEN NEGATIVE (NEGATIVE)
[2017-06-26 22:29] LABS: *AMPHETAMINES SCREEN URINE NEGATIVE (NEGATIVE); *BARBITURATES SCREEN URINE NEGATIVE (NEGATIVE); *BENZODIAZEPINES SCREEN URINE NEGATIVE (NEGATIVE)
[2017-06-26 22:32] LABS: METHADONE URINE SCREEN NEGATIVE (NEGATIVE); OPIATES URINE SCREEN NEGATIVE (NEGATIVE); PHENCYCLIDINE URINE SCREEN NEGATIVE (NEGATIVE)
[2017-06-26 22:43] LABS: *COCAINE SCREEN URINE NEGATIVE (NEGATIVE)
[2017-06-26 23:01] LABS: VITAMIN B12 SERUM 1098 pg/mL (211-911)
[2017-06-26 23:09] LABS: PHOSPHORUS 3.7 mg/dL (2.5-4.9)
[2017-06-27] VITALS (24 sets, daily range): BP systolic 111–157; BP diastolic 65–102
[2017-06-27] MEDS: BLOOD SUGAR DIAGNOSTIC STRIP TEST SCH ×10 (00:39→21:31)
[2017-06-27 05:32] LABS: BASOPHILS % 0.7 % (0.0-2.0); EOSINOPHILS % 3.8 % (0.0-5.0); HEMATOCRIT. 23.3 % (42.0-52.0); HEMOGLOBIN. 8.1 g/dL (14.0-18.0); LYMPHOCYTES % 29.2 % (20.0-50.0); MEAN CORPUSCULAR VOLUME 86.9 fL (80.0-94.0); MEAN PLATELET VOLUME 7.4 fl (7.4-10.4); MONOCYTES % 5.3 % (2.0-8.0); PLATELET 266 x1000/uL (130-400); RED BLOOD CELL COUNT 2.68 mill/uL (4.7-6.1)
[2017-06-27 05:56] LABS: CHLORIDE 112 mEq/L (98-107)
[2017-06-27] MEDS: SODIUM CHLORIDE 0.9% INJ 3ML FLUSH IVF SCH ×3 (06:00→21:31)
[2017-06-27 06:05] LABS: HDL CHOLESTEROL 117 mg/dL (40-59)
[2017-06-27 06:08] LABS: CREATINE KINASE 270 IU/L (39-308); LDL CHOLESTEROL 127 mg/dL (5-100)
[2017-06-27 06:11] LABS: PHOSPHORUS 4.2 mg/dL (2.5-4.9)
[2017-06-27 06:16] LABS: BETA HYDROXYBUTYRATE 0.5 mMol/L (0.0-0.3)
[2017-06-27] MEDS ORDERED: DEXTROSE 50% WATER 50ML SYRINGE IV PRN (08:30)
[2017-06-27] MEDS: PANTOPRAZOLE SODIUM 40 MG/VIAL IV SCH (08:57)
[2017-06-27] MEDS: AMLODIPINE 10MG TABLET PO SCH (08:57)
[2017-06-27] MEDS: TAMSULOSIN HCL 0.4MG SR CAPSULE PO SCH (08:58)
[2017-06-27] MEDS: ENOXAPARIN 30MG/0.3ML SYR SUBCUT SCH (08:59)
[2017-06-27] MEDS ORDERED: SODIUM CHLORIDE 0.9% 1,000 ML IV SCH (09:00)
[2017-06-27] MEDS: GABAPENTIN 300MG CAPSULE PO SCH ×3 (09:01→21:30)
[2017-06-27] MEDS ORDERED: INSU300I SQ (10:47)
[2017-06-27] MEDS: INSULIN LISPRO 100 UNITS/ML SUBCUT SCH ×3 (12:00→21:31)
[2017-06-27] MEDS: INSULIN GLARGINE UD 100 UNITS/ML SYR SUBCUT SCH (12:01)
[2017-06-27 12:57] LABS: CHLORIDE 113 mEq/L (98-107)
[2017-06-27 19:11] LABS: CHLORIDE 112 mEq/L (98-107)
[2017-06-27] MEDS ORDERED: INSULIN GLARGINE UD 100 UNITS/ML SYR SUBCUT SCH (22:00)
[2017-06-28] VITALS (24 sets, daily range): BP systolic 121–162; BP diastolic 66–103
[2017-06-28 05:31] LABS: BASOPHILS % 0.5 % (0.0-2.0); EOSINOPHILS % 6.1 % (0.0-5.0); HEMOGLOBIN. 7.9 g/dL (14.0-18.0); LYMPHOCYTES % 25.7 % (20.0-50.0); MEAN CORPUSCULAR HEMOGLOBIN 29.8 pg (28.0-32.0); MEAN CORPUSCULAR VOLUME 86.1 fL (80.0-94.0); MEAN PLATELET VOLUME 7.1 fl (7.4-10.4); MONOCYTES % 6.9 % (2.0-8.0); NEUTROPHILS % 60.8 % (40.0-76.0); PLATELET 286 x1000/uL (130-400); RED BLOOD CELL COUNT 2.67 mill/uL (4.7-6.1); RED CELL DISTRIBUTION WIDTH 14.1 % (11.6-14.6)
[2017-06-28 05:44] LABS: CHLORIDE 111 mEq/L (98-107)
[2017-06-28] MEDS: GABAPENTIN 300MG CAPSULE PO SCH ×3 (05:48→20:31)
[2017-06-28] MEDS: SODIUM CHLORIDE 0.9% INJ 3ML FLUSH IVF SCH ×3 (05:48→20:35)
[2017-06-28 05:51] LABS: PHOSPHORUS 4.2 mg/dL (2.5-4.9)
[2017-06-28] MEDS: MORPHINE SULFATE 4 MG/ML CPJ (NOT FOR IM USE) IV PRN ×2 (06:26→15:02)
[2017-06-28] MEDS ORDERED: TAMS-11 PO (07:30)
[2017-06-28] MEDS: BLOOD SUGAR DIAGNOSTIC STRIP TEST SCH ×4 (07:50→20:35)
[2017-06-28] MEDS: TAMSULOSIN HCL 0.4MG SR CAPSULE PO SCH (08:33)
[2017-06-28] MEDS: ENOXAPARIN 30MG/0.3ML SYR SUBCUT SCH (08:33)
[2017-06-28] MEDS: AMLODIPINE 10MG TABLET PO SCH (08:34)
[2017-06-28] MEDS: PANTOPRAZOLE SODIUM 40 MG/VIAL IV SCH (08:37)
[2017-06-28] MEDS: INSULIN LISPRO 100 UNITS/ML SUBCUT SCH ×4 (08:42→20:34)
[2017-06-28] MEDS: INSULIN GLARGINE UD 100 UNITS/ML SYR SUBCUT SCH (09:42)
[2017-06-28] MEDS ORDERED: POTASSIUM CHLORIDE INJ 40 MEQ in DEXT 5% WATER 250 ML IV NR (10:00)
[2017-06-28] MEDS ORDERED: VANCOMYCIN 1 G PREMIX 200 ML IV SCH (13:00)
[2017-06-28] MEDS: HYDRALAZINE HCL 50MG TABLET PO SCH ×2 (15:01→20:52)
[2017-06-28] MEDS: HYDRALAZINE 20MG/ML VIAL IV PRN ×2 (20:31→20:36)
[2017-06-28] MEDS ORDERED: HYDR-4135 PO (21:14)
[2017-06-28] MEDS ORDERED: AMLO10TA80 PO (21:14)
[2017-06-29] VITALS: BP 138/80
[2017-06-29 04:00] VITALS: BP 129/81
[2017-06-29] MEDS: GABAPENTIN 300MG CAPSULE PO SCH ×2 (06:36→14:03)
[2017-06-29] MEDS: SODIUM CHLORIDE 0.9% INJ 3ML FLUSH IVF SCH ×2 (06:36→14:00)
[2017-06-29] MEDS: INSULIN LISPRO 100 UNITS/ML SUBCUT SCH ×2 (06:40→12:50)
[2017-06-29] MEDS: BLOOD SUGAR DIAGNOSTIC STRIP TEST SCH ×2 (06:40→11:49)
[2017-06-29 08:00] VITALS: BP 151/91
[2017-06-29] MEDS: AMLODIPINE 10MG TABLET PO SCH (08:50)
[2017-06-29] MEDS: TAMSULOSIN HCL 0.4MG SR CAPSULE PO SCH (08:50)
[2017-06-29] MEDS: PANTOPRAZOLE SODIUM 40 MG/VIAL IV SCH (08:51)
[2017-06-29] MEDS: HYDRALAZINE HCL 50MG TABLET PO SCH (08:51)
[2017-06-29] MEDS: ENOXAPARIN 30MG/0.3ML SYR SUBCUT SCH (08:53)
[2017-06-29] MEDS: INSULIN GLARGINE UD 100 UNITS/ML SYR SUBCUT SCH (10:00)
[2017-06-29 12:00] VITALS: BP 155/87
[2017-06-29] MEDS ORDERED: HYDRALAZINE 10 MG in SODIUM CHLORIDE 0.9% 49.5 ML IV PRN (13:00)
[2017-06-29 14:22] VITALS: BP 155/87
[2017-06-29] MEDS ORDERED: ATENOLOL 50 MG TABLET PO SCH (15:00)
[2017-06-29 15:41] VITALS: BP 139/82
[2017-06-30] MEDS ORDERED: FAMOTIDINE 20MG TABLET PO SCH (09:00)
== END 2017-06-29 16:45 | disposition home health service (06) | DRG 637 ==
LOC: ER 06:46 → CVICU 09:05 → EDBEDREQ 09:07 → ENRESERV 12:50 → 6EST 06-28 22:36
PROVIDERS: ADMIT Family Medicine; ATTEND Family Medicine
DX: E10.10 Type 1 diabetes mellitus with ketoacidosis without coma (principal); E43 Unspecified severe protein-calorie malnutrition; R56.9 Unspecified convulsions; E10.21 Type 1 diabetes mellitus with diabetic nephropathy; E10.42 Type 1 diabetes mellitus with diabetic polyneuropathy; N17.9 Acute kidney failure, unspecified; N18.4 Chronic kidney disease, stage 4 (severe); E87.2 Acidosis; L08.9 Local infection of the skin and subcutaneous tissue, unspecified; E10.22 Type 1 diabetes mellitus with diabetic chronic kidney disease; E10.319 Type 1 diabetes mellitus with unspecified diabetic retinopathy without macular edema; Z74.01 Bed confinement status; M19.90 Unspecified osteoarthritis, unspecified site; D64.9 Anemia, unspecified; E78.5 Hyperlipidemia, unspecified; H54.8 Legal blindness, as defined in USA; R74.8 Abnormal levels of other serum enzymes; I12.9 Hypertensive chronic kidney disease with stage 1 through stage 4 chronic kidney disease, or unspecified chronic kidney disease; L97.529 Non-pressure chronic ulcer of other part of left foot with unspecified severity; N32.89 Other specified disorders of bladder; Z88.0 Allergy status to penicillin; Z91.018 Allergy to other foods; Z83.3 Family history of diabetes mellitus; Z82.49 Family history of ischemic heart disease and other diseases of the circulatory system; Z82.0 Family history of epilepsy and other diseases of the nervous system; Z68.22 Body mass index [BMI] 22.0-22.9, adult
CPT/HCPCS: 36415; 36600; 70450; 71045; 76705; 76770; 80048; 80053; 80061; 80202; 80305; 81003; 82010; 82375; 82550; 82570; 82607; 82805; 82962; 83036; 83540; 83550; 83605; 83735; 84100; 84156; 84300; 84443; 84484; 85018; 85025; 86705; 86709; 86803; 87086; 87340; 93005; 93306; 93970; C9113; J0360; J1650; J1815; J2270; J3370; J3480; J7030; J7042; J7050; J7060; J7620; A4315

== ENCOUNTER 2017-07-09 11:06 | Emergency (ER) | payer MEDICARE, MEDICAID ==
[~2017-07-09] VITALS: Ht 170.2 cm; Wt 70.0 kg
[~2017-07-09 11:06] MED LIST changes: +AMLO10TA80 PO; +HYDR-4135 PO; -LEVO750T46 PO; +TAMS-11 PO
[2017-07-09 14:21] LABS: CLARITY URINE CLEAR (CLEAR); COLOR URINE YELLOW (YELLOW); KETONES URINE NEGATIVE (NEGATIVE); LEUKOCYTE ESTERASE URINE NEGATIVE (NEGATIVE); NITRITE URINE NEGATIVE (NEGATIVE); OCCULT BLOOD URINE 2+ (NEGATIVE); PROTEIN URINE 3+ (NEGATIVE); SPECIFIC GRAVITY URINE 1.018 (1.005-1.030); UROBILINOGEN URINE 0.2 E.U./dL (0.2-1.0)
[2017-07-09 17:17] VITALS: BP 168/82
== END 2017-07-09 18:24 | disposition home or self-care (01) ==
LOC: ER 13:16
DX: N39.0 Urinary tract infection, site not specified (principal); E11.9 Type 2 diabetes mellitus without complications; F12.10 Cannabis abuse, uncomplicated; Z88.0 Allergy status to penicillin; Z79.4 Long term (current) use of insulin
CPT/HCPCS: 81003; 99284

== ENCOUNTER 2018-02-14 09:57 | Inpatient (IN) | payer MEDICARE, MEDICAID ==
[~2018-02-14] VITALS: Ht 162.6 cm; Wt 63.5 kg
[~2018-02-14 09:57] MED LIST changes: +COLL30OI TP; +KEPP500 MT; +SULF1TAB48 MT
[2018-02-14 11:47] LABS: BASOPHILS % 0.9 % (0.0-2.0); EOSINOPHILS % 6.1 % (0.0-5.0); HEMATOCRIT. 31.7 % (42.0-52.0); HEMOGLOBIN. 10.2 g/dL (14.0-18.0); LYMPHOCYTES % 31.5 % (20.0-50.0); MEAN CORPUSCULAR HEMOGLOBIN 27.7 pg (28.0-32.0); MEAN PLATELET VOLUME 7.4 fl (7.4-10.4); MONOCYTES % 5.8 % (2.0-8.0); NEUTROPHILS % 55.7 % (40.0-76.0); PLATELET 245 x1000/uL (130-400); RED BLOOD CELL COUNT 3.69 mill/uL (4.7-6.1); RED CELL DISTRIBUTION WIDTH 13.2 % (11.6-14.6)
[2018-02-14 11:54] LABS: INR 0.9; PARTIAL THROMBOPLASTIN TIME 28.7 sec (23.4-31.0); PROTHROMBIN TIME 9.5 sec (9.1-11.1)
[2018-02-14 12:09] LABS: CLARITY URINE CLOUDY (CLEAR); KETONES URINE NEGATIVE (NEGATIVE); LEUKOCYTE ESTERASE URINE 2+ (NEGATIVE); NITRITE URINE NEGATIVE (NEGATIVE); OCCULT BLOOD URINE 3+ (NEGATIVE); PROTEIN URINE 3+ (NEGATIVE); SPECIFIC GRAVITY URINE 1.013 (1.005-1.030); UROBILINOGEN URINE 0.2 E.U./dL (0.2-1.0)
[2018-02-14 12:11] LABS: COLOR URINE AMBER (YELLOW)
[2018-02-14] MEDS ORDERED: INSNOV SUBCUT (12:17)
[2018-02-14] MEDS ORDERED: OXYC-105 PO (12:17)
[2018-02-14] MEDS ORDERED: FLUO-124 PO (12:17)
[2018-02-14] MEDS ORDERED: INSU100I22 SQ (12:17)
[2018-02-14] MEDS ORDERED: DIPH25CA83 PO (12:17)
[2018-02-14] MEDS ORDERED: DEXAMETHASONE 4MG/ML 1ML VIAL ONE (12:36)
[2018-02-14] MEDS ORDERED: TRIAMCINOLONE ACETONIDE 40MG/ML 1ML VIAL ONE (12:36)
[2018-02-14] MEDS ORDERED: BUPIVACAINE HCL/PF 0.25% (2.5MG/ML) 10ML ONE (12:37)
[2018-02-14] MEDS ORDERED: LIDOCAINE HCL/PF 1% 10 MG/ML 5ML VIAL ONE (12:37)
[2018-02-14] MEDS ORDERED: BUPIVACAINE HCL/PF 0.5% (5MG/ML) 10ML ONE (12:51)
[2018-02-14] MEDS ORDERED: BACITRACIN 15GM TUBE TOP ONE (13:08)
[2018-02-14] MEDS ORDERED: GENTAMICIN SULF 40MG/ML 2ML VIAL ONE (13:08)
[2018-02-14] MEDS ORDERED: SODIUM CHLORIDE 0.9% 1,000 ML IV ONE (14:47)
[2018-02-14] MEDS ORDERED: ONDANSETRON HCL 4MG/2ML INJ IV PRN ×2 (15:00)
[2018-02-14] MEDS ORDERED: ACETAMINOPHEN 325MG TABLET PO PRN (15:00)
[2018-02-14] MEDS ORDERED: DOCUSATE SODIUM 100MG CAPSULE PO PRN (15:00)
[2018-02-14] MEDS ORDERED: DIPHENHYDRAMINE 50MG/ML VIAL IV PRN (15:00)
[2018-02-14] MEDS ORDERED: MAGNESIUM/ALUMINUM HYDROXIDE/SIMETHICONE 30ML UDC PO PRN (15:00)
[2018-02-14] MEDS ORDERED: CLONIDINE 0.1MG TABLET PO PRN (15:00)
[2018-02-14] MEDS ORDERED: MORPHINE SULFATE 10 MG/ML CPJ IV PRN (15:00)
[2018-02-14] MEDS ORDERED: HYDROMORPHONE HCL/PF 2MG/ML CPJ IV PRN ×2 (15:00→18:00)
[2018-02-14 17:46] VITALS: BP 139/89
[2018-02-14 17:50] VITALS: BP 139/89
[2018-02-14] MEDS ORDERED: NA PHOS,M-B/NA PHOS,DI-BA ENEMA 118ML PR PRN (18:00)
[2018-02-14] MEDS ORDERED: DEXTROSE 50% WATER 50ML SYRINGE IV PRN (18:00)
[2018-02-14] MEDS: ENOXAPARIN 30MG/0.3ML SYR SUBCUT SCH (18:36)
[2018-02-14 20:00] VITALS: BP 151/93
[2018-02-14] MEDS ORDERED: LEVOFLOXACIN 250MG PREMIX 50 ML IV SCH (20:00)
[2018-02-14] MEDS: BLOOD SUGAR DIAGNOSTIC STRIP TEST SCH (20:30)
[2018-02-14] MEDS: INSULIN LISPRO 100 UNITS/ML SUBCUT SCH (20:31)
[2018-02-14] MEDS ORDERED: HYDRALAZINE HCL 50 MG PO SCH (21:00)
[2018-02-14] MEDS: LEVETIRACETAM 500MG TABLET PO SCH (21:21)
[2018-02-14] MEDS: HYDRALAZINE HCL 50MG TABLET PO SCH (21:21)
[2018-02-14] MEDS: SODIUM CHLORIDE 0.9% INJ 3ML FLUSH IVF SCH (22:04)
[2018-02-15] VITALS: BP 145/89
[2018-02-15 04:00] VITALS: BP 150/85
[2018-02-15] MEDS: SODIUM CHLORIDE 0.9% INJ 3ML FLUSH IVF SCH ×2 (05:21→14:09)
[2018-02-15] MEDS: BLOOD SUGAR DIAGNOSTIC STRIP TEST SCH ×3 (06:37→16:31)
[2018-02-15 07:08] LABS: BASOPHILS % 0.2 % (0.0-2.0); EOSINOPHILS % 0.1 % (0.0-5.0); HEMATOCRIT. 30.3 % (42.0-52.0); HEMOGLOBIN. 9.7 g/dL (14.0-18.0); LYMPHOCYTES % 22.1 % (20.0-50.0); MEAN CORPUSCULAR VOLUME 87.1 fL (80.0-94.0); MONOCYTES % 4.5 % (2.0-8.0); NEUTROPHILS % 73.1 % (40.0-76.0); PLATELET 235 x1000/uL (130-400); RED BLOOD CELL COUNT 3.48 mill/uL (4.7-6.1); RED CELL DISTRIBUTION WIDTH 13.2 % (11.6-14.6)
[2018-02-15 08:00] VITALS: BP 150/89
[2018-02-15] MEDS ORDERED: AMLODIPINE 10MG TABLET PO SCH (09:00)
[2018-02-15] MEDS: LEVETIRACETAM 500MG TABLET PO SCH (09:15)
[2018-02-15] MEDS: HYDRALAZINE HCL 50MG TABLET PO SCH (09:15)
[2018-02-15] MEDS: INSULIN LISPRO 100 UNITS/ML SUBCUT SCH ×3 (09:20→17:04)
[2018-02-15 11:39] VITALS: BP 162/101
[2018-02-15] MEDS ORDERED: CEPH-569 MT (15:06)
[2018-02-15] MEDS ORDERED: SULF1TAB48 MT (15:06)
[2018-02-15 16:00] VITALS: BP 142/87
[2018-02-15 16:12] VITALS: BP 142/87
[2018-02-15] MEDS: ENOXAPARIN 30MG/0.3ML SYR SUBCUT SCH (17:01)
== END 2018-02-15 18:05 | disposition home or self-care (01) | DRG 504 ==
LOC: OR 09:57 → 6EST 17:47
PROVIDERS: ADMIT Internal Medicine; ATTEND Podiatrist Foot & Ankle Surgery
PROC: 0L8P0ZZ Division of Left Lower Leg Tendon, Open Approach (ICD-10-PCS; principal; 2018-02-14 13:30)
DX: M67.02 Short Achilles tendon (acquired), left ankle (principal); N39.0 Urinary tract infection, site not specified; D63.1 Anemia in chronic kidney disease; E10.22 Type 1 diabetes mellitus with diabetic chronic kidney disease; E10.42 Type 1 diabetes mellitus with diabetic polyneuropathy; E10.65 Type 1 diabetes mellitus with hyperglycemia; I12.9 Hypertensive chronic kidney disease with stage 1 through stage 4 chronic kidney disease, or unspecified chronic kidney disease; M24.572 Contracture, left ankle; N18.9 Chronic kidney disease, unspecified; Z79.4 Long term (current) use of insulin; Z99.3 Dependence on wheelchair
CPT/HCPCS: 36415; 80048; 82040; 82962; 83036; 87077; 87186; 93005; 97162; J1100; J1580; J1650; J1815; J1956; J3301; J3490; J7040